=== PATIENT | female | born 1990 | race Caucasian/White ===

== ENCOUNTER 2017-03-13 07:44 | Emergency (ER) | payer BC, MEDICAID ==
[~2017-03-13] VITALS: Wt 81.8 kg
[~2017-03-13 07:44] MED LIST: PREN1TAB49
[2017-03-13] MEDS ORDERED: ACETAMINOPHEN 500 MG TAB PO STA (08:11)
[2017-03-13] MEDS ORDERED: BENZ100C70 PO (08:12)
[2017-03-13] MEDS ORDERED: ACET500C5 PO (08:12)
[2017-03-13] MEDS ORDERED: OSLT75C PO (08:12)
--- NOTE | 2017-03-13 08:16 | ERD ---
ER Documentation Chief Complaint Date/Time DATE: 03/13/17 TIME: 08:13 Chief Complaint cough, fever, runny nose, n/v/d, bodyaches HPI Patient is a 26-year-old female who presents to the ED with body aches, fever, cough, runny nose and congestion and nausea times last night. She states that her son and daughter have had similar symptoms at home. She has taken Motrin, last dose was sometime today. She denies dizziness or headache. She denies abdominal pain but states that she had an episode of posttussive emesis and one episode of nonbloody nonblack loose stools today. Denies leg pain or swelling. Denies chest pain, shortness of breath or difficulty breathing. Denies recent travel or recent surgeries. No other complaints. Denies decrease in appetite. states she is tolerating fluids. ROS All systems reviewed and are negative except as per history of present illness. Medications Home Meds Active Scripts Benzonatate* (Tessalon Perle*) 100 Mg Capsule, 100 MG PO Q8H Y for COUGH for 28 Days, CAP Prov:PEBBLES LOPES-C 03/13/17 Acetaminophen* (Tylophen*) 500 Mg Capsule, 1 CAP PO Q6H Y for PAIN AND OR ELEVATED TEMP, #20 CAP Prov:PEBBLES LOPES-C 03/13/17 Oseltamivir Phosphate* (Tamiflu*) 75 Mg Capsule, 75 MG PO BID for 5 Days, CAP Prov:PEBBLES LOPES PA-C 03/13/17 Reported Medications Vits W-Ca,Fe,Fa(<1MG) () 1 Tab Tablet 02/26/13 Allergies Allergies: Coded Allergies: Penicillins (Verified Allergy, Unknown, 11/03/14) PMhx/Soc History of Surgery: Yes (APPENDECTOMY, gallstone removal) Anesthesia Reaction: No Hx Neurological Disorder: No Hx Respiratory Disorders: Yes (ASTHMA) Hx Cardiac Disorders: No Hx Psychiatric Problems: No Hx Miscellaneous Medical Probl: No Hx Alcohol Use: No Hx Substance Use: No Hx Tobacco Use: No Physical Exam Vitals Vital Signs Date Time Temp Pulse Resp B/P Pulse Ox O2 Delivery O2 Flow Rate FiO2 03/13/17 07:48 100.4 101 20 134/80 98 Physical Exam GENERAL: Well-developed, well-nourished female. Appears in no acute distress. HEAD: Normocephalic, atraumatic. EYES: Pupils are equally reactive bilaterally. EOMs grossly intact. No conjunctival erythema. ENT: Moist mucous membranes. No uvula deviation. No kissing tonsils. No exudates. Bilateral TMs are nonerythematous and nonbulging. No mastoid tenderness. NECK: Supple. No lymphadenopathy or thyromegaly. No meningismus. negative kernig. negative brudinski. LUNG: Clear to auscultation bilaterally. No rhonchi, wheezing, rales or coarse breath sounds. HEART: Regular rate and rhythm. No murmurs, rubs or gallops. ABDOMEN: No scars, ecchymosis or rashes noted. Soft, nontender, and nondistended. Positive bowel sounds in all four quadrants. No rebound tenderness , no guarding. (-) McBurneys point tenderness. No CVA tenderness. BACK: No midline tenderness. Extremities: Equal pulses bilaterally. No peripheral clubbing, cyanosis or edema. No unilateral leg swelling. NEUROLOGIC: Alert and oriented. Moving all four extremities. 5/5 strength in all extremities. Normal speech. Steady gait. SKIN: Normal color. Warm and dry. No rashes or lesions. Capillary refill < 2 seconds Results 24 hrs Current Medications Medications (Trade) Dose Ordered Sig/Deidre Route PRN Reason Start Time Stop Time Status Last Admin Dose Admin Acetaminophen (Tylenol Tab) 1,000 mg ONCE STAT PO 03/13/17 08:11 03/13/17 08:12 DC 03/13/17 08:16 Procedures/MDM ER COURSE: I kept the patient and/or family informed of laboratory and diagnostic imaging results throughout the emergency room course. MEDICATONS tylenol 1g MEDICAL DECISION MAKING: This is a 26-year-old female who presents with fever, body aches, cough, congestion 1 day. Vital signs were reviewed. Patient is afebrile. Patient is not hypoxic. Patient has a temperature of 100.4 and a pulse of 101. Her pulse is likely related to her temperature and stress reaction. After administration of Tylenol, her temperature is down trending. Patient is not toxic or ill- appearing. Patient likely has influenza-like illness. Low suspicion for pneumonia, PE, pneumothorax, ACS, epiglottitis, obstruction, TB, pertussis, meningitis, sepsis. DISCHARGE: At this time, patient is stable for discharge and outpatient management with no new complaints during the ER course. Patient was sent home with Tamiflu, Tylenol and Tessalon Perles and a note for work.. Patient will be discharged home with instructions to recheck for new or worsening symptoms such as fever, nausea, weakness, LOC and to follow up with primary care in the next 1-2 days. Patient was advised to return to the ER for any new or worsening symptoms. Plan was discussed and patient and/or family understands and agrees. Home instructions were given. Departure Diagnosis: Primary Impression: Influenza-like symptoms Condition: Stable Patient Instructions: Influenza (Adult) Additional Instructions: Call your primary care doctor TOMORROW for an appointment during the next 1-2 days.See the doctor sooner or return here if your condition worsens before your appointment time. PEBBLES LOPES PA-C Mar 13, 2017 08:16
== END 2017-03-13 08:25 | disposition home or self-care (01) ==
LOC: FTE 07:44
DX: R50.9 Fever, unspecified (principal); R09.89 Other specified symptoms and signs involving the circulatory and respiratory systems; R11.2 Nausea with vomiting, unspecified; R19.7 Diarrhea, unspecified; R52 Pain, unspecified; J45.909 Unspecified asthma, uncomplicated
CPT/HCPCS: Z7502; Z7610; 99283

== ENCOUNTER 2017-06-08 08:18 | Emergency (ER) | payer BC ==
[~2017-06-08] VITALS: Ht 172.7 cm; Wt 126.5 kg
[~2017-06-08 08:18] MED LIST changes: +ACET500C5 PO; +BENZ100C70 PO; +OSLT75C PO
[2017-06-08 08:20] VITALS: Ht 172.7 cm; Wt 126.5 kg
[2017-06-08] MEDS ORDERED: KETOROLAC 60 MG INJ IM STA (08:46)
--- NOTE | 2017-06-08 09:29 | RADRPT ---
PROCEDURE: XR Lumbar Spine. CLINICAL INDICATION: lower back pain TECHNIQUE: AP and lateral views of the lumbar spine are reportedly obtained with the patient weigh t bearing. COMPARISON: No prior studies are available for comparison. FINDINGS: There is normal vertebral mineralization. There is a 17 degrees dextroscoliosis measured between superior L3 and superior T11. No fracture is clearly identified. There is mild disk space narrowing at L5-S1. The posterior elements are unremarkable. The soft tissues appear normal. IMPRESSION: 1. 17 degrees dextroscoliosis measured between superior L3 and superior T11. 2. Mild disk space narrowing at L5-S1. RPTAT:AAJJ Physician Jean Date Time Electronically viewed and signed by Physician Jean on 06/08/2017 09:29 /
[2017-06-08] MEDS ORDERED: CYCL-319 PO (10:24)
[2017-06-08] MEDS ORDERED: NAPR-260 PO (10:24)
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
== END 2017-06-08 10:34 | disposition home or self-care (01) ==
LOC: FTE 08:18
DX: S39.92XA Unspecified injury of lower back, initial encounter (principal); J45.909 Unspecified asthma, uncomplicated; Y08.89XA Assault by other specified means, initial encounter
CPT/HCPCS: 72100; J1885; 96372

== ENCOUNTER 2018-10-22 18:06 | Emergency (ER) | END 2018-10-22 20:42 | disposition home or self-care (01) ==